=== PATIENT | female | born 1980 | race Caucasian/White ===

== ENCOUNTER 2022-03-11 22:15 | Emergency (ER) | payer BC ==
[2022-03-11 22:23] VITALS: BMI 22.6
[2022-03-11 22:39] VITALS: BP 127/86; PULSE 64; TEMP 98.9
== END 2022-03-12 00:23 | disposition home or self-care (01) ==
LOC: FER 22:15
PROC: 0H9QXZZ Drainage of Finger Nail, External Approach (ICD-10-PCS; principal; 2022-03-11)
DX: S60.151A Contusion of right little finger with damage to nail, initial encounter (principal); W23.0XXA Caught, crushed, jammed, or pinched between moving objects, initial encounter
CPT/HCPCS: 73140-TC-RT-FY; 99283-25